=== PATIENT | female | born 1935 | race Caucasian/White ===

== ENCOUNTER 2020-10-24 08:15 | Observation (INO) | payer MEDICARE, OTHER ==
[~2020-10-24] VITALS: Ht 137.2 cm; Wt 55.0 kg
--- NOTE | 2020-10-24 08:15 | NUR ---
TO ROOM VIA EMS
--- NOTE | 2020-10-24 08:51 | NUR ---
MEDICATED WITH 2MG IVP FOR C/O 10/10 LEFT FOOT PAIN.
[2020-10-24] MEDS ORDERED: TRAMADOL HCL50 MG PO (09:04)
[2020-10-24] MEDS ORDERED: CLOPIDOGREL75 MG PO (09:07)
[2020-10-24] MEDS ORDERED: ATORVASTATIN CA80 MG PO (09:07)
[2020-10-24] MEDS ORDERED: FUROSEMIDE20 MG PO (09:08)
[2020-10-24] MEDS ORDERED: LOSARTAN POTASS50 MG PO (09:08)
[2020-10-24] MEDS ORDERED: EQ OMEPRAZOLE20 MG PO (09:09)
[2020-10-24] MEDS ORDERED: POT CHLORIDE10 ME5 PO (09:09)
[2020-10-24 09:25] LABS: URINE BILIRUBIN - DIPSTICK NEGATIVE (NEGATIVE); URINE BLOOD DIPSTICK TRACE-LYSED (NEGATIVE); URINE COLOR YELLOW; URINE GLUCOSE - DIPSTICK NEGATIVE (NEGATIVE); URINE KETONE NEGATIVE (NEGATIVE); URINE PH 6.5 (4.5-8.0); URINE PROTEIN - DIPSTICK NEGATIVE (NEG-TRACE); URINE UROBILINOGEN - DIPSTICK 0.2 E.U./dL (0.2)
[2020-10-24 09:26] LABS: URINE LEUK ESTERASE SMALL (NEGATIVE); URINE NITRITE - DIPSTICK NEGATIVE (Negative)
[2020-10-24 09:26] LABS: HEMATOCRIT 34.1 % (37.0-47.0); HEMOGLOBIN 10.7 g/dl (12.0-16.0); IMMATURE GRANULOCYTES 0.2 % (0.0-5.0); MEAN CELL VOLUME 87.4 fL CALC (80.0-100.0); MEAN CORPUSCULAR HGB 27.4 pG CALC (26.0-32.0); MEAN CORPUSCULAR HGB CONC 31.4 g/dL CAL (32.0-36.0); NEUT# 7.79 thou/uL (2.00-7.15); RED BLOOD COUNT 3.9 mill/uL (4.20-5.60); RED CELL DISTRI WIDTH 15.2 % (11.5-15.5)
[2020-10-24 09:32] LABS: URINE RBC 0-2 RBC/hpf (0-5); URINE SQUAMOUS EPITHELIAL CELL MANY EPI/hpf (0-FEW)
[2020-10-24 09:38] LABS: ALKALINE PHOSPHATASE 95 u/l (38-126); ANION GAP 15 (6-22 (CALC)); BILIRUBIN, TOTAL 0.7 mg/dL (0.0-1.4); BUN 12 mg/dL (8-23); BUN/CREATININE RATIO 14 (12-20 (CALC)); CARBON DIOXIDE 23 mmol/l (22-30); CHLORIDE 95 mmol/l (95-108); CREATININE 0.8 mg/dL (0.5-1.0); GFR > 60 ML/MIN (>=60 (CALC)); GFR FOR AFR.AMER. > 60 ML/MIN (>=60 (CALC)); POTASSIUM 3.8 mmol/l (3.5-5.1); SGOT/AST 23 u/l (9-36); SODIUM 129 mmol/l (137-146); TOTAL PROTEIN 7.3 g/dL (6.3-8.2)
[2020-10-24 09:41] LABS: ACT PARTIAL THROMBO TIME 25.1 SECONDS (20.0-32.5); INTERNATIONAL NORMALIZED RATIO 0.9 RATIO (0.7-1.3); PROTHROMBIN TIME 9.9 SECONDS (9.0-12.5)
--- NOTE | 2020-10-24 10:00 | NUR ---
RECEIVED REPORT ON PATIENT AND ASSUMED CARE. PATIENT IS RESTING IN BED WITH DAUGHTER AT BEDISDE. STATES HER LEFT FOOT HURTS. LEFT FOOT IS REDDENED, WARM AND TENDER. PULSES PALPABLE AND CAP REFILL LESS THAN 2 SECONDS. LEFT FOOT ELEVATED AND PILLOW PROVIDED FOR HEAD. LIGHTS DIMMED AND BLANKET PROVIDED FOR COMFORT STATED BY PATIENT. PLAN REVIEWED, AWAITING RESULTS. PATIENT AND DAUGHTER [id number] UNDERSTANDING. CALL LIGHT IN REACH.
--- NOTE | 2020-10-24 10:55 | NUR ---
MD AT BEDSIDE TO DISCUSS RESULTS AND POC.
--- NOTE | 2020-10-24 11:51 | NUR ---
PATIENT DIET CHANGED TO MECHANICAL SOFT, PATIENT STATES SHE HAS A HARD TIME CHEWING.
--- NOTE | 2020-10-24 11:51 | NUR ---
RECEIVED ROOM 272
--- NOTE | 2020-10-24 11:58 | NUR ---
REPORT RECEIVED FROM DAGO RIVERA
--- NOTE | 2020-10-24 12:00 | NUR ---
REPORT CALLED TO LAKISHA
[2020-10-24 12:12] VITALS: BP 142/65
--- NOTE | 2020-10-24 12:12 | NUR ---
PT ARRIVED TO MED/SURG ROOM 272 IN STABLE CONDITION VIA STERTCHER ACCOMPANIED BY DAGO RIVERA;PT ASSISTED TO BEDSIDE WITH X2 ASSIST;PT A&O X3 BUT NOTED TO BE CHICKEN RANCH, ROOM AND CALL LIGHT SYSTEM EDUCATED;WT AND VS OBTAINED;PT REPORTS LLE PAIN RATING 7/10 ON THE PAIN SCALE, RECENTLY MEDICATED WITH PRN ULTRAM 50MG PO IN ER;PAIN SCALE AND REPORTING EDUCATED;ASSESSMENT COMPLETED;RESPIRATIONS EVEN AND UNLABORED ON RA,CLEAR LUNG SOUNDS;ABDOMEN SOFT ON PALPATION AND ACTIVE IN ALL 4 QUADRANTS,LAST BM 10/23/20;REDDENING NOTED TO ABDOMINAL FOLDS;WEAK PEDAL PULSES;LLE RED/WARM TO TOUCH WITH +2 EDEMA,ELEVATION ON A PILLOW;TELE MONITORING IN PLACE;#22G TO RH FLUSHED AND PATENT, NS STARTED @ 100ML/HR,SITE APPEARS HEALTHY;FALL AND ALLERGY BAND APPLIED TO RIGHT WRIST;PT DENIES ANY ADDITIONAL NEEDS AND IS ENCOURAGED TO CALL FOR ASSISTANCE IF NEEDED;FALL PRECAUTIONS IN PLACE WITH BED IN THE LOWEST POSITION AND BED ALARM ON FOR SAFETY;CALL LIGHT IN REACH;WILL CONTINUE TO MONITOR
--- NOTE | 2020-10-24 14:16 | NUR ---
PT APPEARS TO BE SLEEPING IN SEMI FOWLERS POSITION;RESPIRATIONS EVEN AND UNLABORED ON RA;NO S/S OF DISTRESS NOTED;TELE MONITORING IN PLACE;IV SITE PATENT;ALL SAFETY PRECAUTIONS REMAIN IN PLACE WITH CALL LIGHT IN REACH;WILL CONTINUE TO MONITOR
[2020-10-24 15:02] VITALS: BP 129/68
--- NOTE | 2020-10-24 15:25 | NUR ---
PT RESTING IN SEMI FOWLERS POSITION;RESPIRATIONS EVEN AND UNLABORED ON RA;PT REPORTS PAIN TO LLE WHEN PALPATED OR MOVED, LLE REMAINS ELEVATED ON A PILLOW;PT CLEANED DUE TO INCONTINENCE AND PUREWICK CATHETER APPLIED;#22G TO RH REMAINS PATENT AND ABX STARTED PER ORDER;TELE MONITORING IN PLACE;PT DENIES ANY ADDITIONAL NEEDS AND IS ENCOURAGED TO CALL FOR ASSISTANCE IF NEEDED;FALL PRECAUTIONS REMAIN IN PLACE WITH BED ALARM ON FOR SAFETY;WILL CONTINUE TO MONITOR
--- NOTE | 2020-10-24 16:20 | NUR ---
PT CRYING IN PAIN AND REPORTING LLE IS THROBBING. CALL PLACED TO AND NEW ORDERS RECEIVED
--- NOTE | 2020-10-24 16:49 | NUR ---
PT REPORTS LLE PAIN RATING 8/10 ON THE PAIN SCALE, PT MEDICATED WITH PRN LORTAB 5/325MG PO AT THIS TIME;WILL CONTINUE TO MONITOR FOR EFFECTIVENESS
--- NOTE | 2020-10-24 20:00 | NUR ---
PT SITTING UP IN BED UPON ARRIVAL TO SHIFT, REPORT RECEIVED FROM DAY SHIFT NURSE. PT HAS DINNER TRAY SET UP IN FRONT OF HER, HAS NOT EATEN MUCH. PT C/O HEARTBURN, PROVIDED PT WITH A CARTON OF MILK TO HELP WITH HEARTBURN. IV REMAINS IN PLACE, NO SIGNS OF INFILTRATION/INFECTION NOTED. BREATHING IS EVEN AND UNLABORED. ASSESSMENTS COMPLETED, PLEASE SEE DOICUMENTATION. SAFETY PRECAUTIONS IN PLACE, BED IN LOW POSITION, CALL LIGHT WITHIN REACH. WILL MONITOR
[2020-10-24 20:08] VITALS: BP 116/62
[2020-10-25 00:06] VITALS: BP 99/58
--- NOTE | 2020-10-25 01:31 | NUR ---
PT RESTING IN BED WITH HER EYES CLOSED. NO S/S OF DISTRESS NOTED. NO COMPLAINTS VOICED. SAFETY PRECAUTIONS IN PLACE, WILL MONITOR
--- NOTE | 2020-10-25 02:54 | NUR ---
AFTER ABT HAD BEEN STARTED VIA IV RECEIVED A CALL FROM PT THAT IV SITE WAS HORRIBLY PAINFUL. ASSESSED SITE, NOTED REDNESS, PAIN, AND SWELLING TO SITE. ABT STOPPED PENDING NEW SITE. NEW SITE TO LAC #24 RUNNING NS @ 100ML/HR. X2 UNSICCESSFUL ATTEMPTS. PT TOLERATED WELL. SAFETY PRECAUTIONS IN PLACE. WILL MONITOR
[2020-10-25 05:05] LABS: HEMATOCRIT 34.1 % (37.0-47.0); HEMOGLOBIN 10.6 g/dl (12.0-16.0); MEAN CELL VOLUME 88.3 fL CALC (80.0-100.0); MEAN CORPUSCULAR HGB 27.5 pG CALC (26.0-32.0); MEAN CORPUSCULAR HGB CONC 31.1 g/dL CAL (32.0-36.0); RED BLOOD COUNT 3.86 mill/uL (4.20-5.60)
[2020-10-25 05:08] VITALS: BP 117/64
[2020-10-25 05:16] LABS: ANION GAP 15 (6-22 (CALC)); BUN 11 mg/dL (8-23); BUN/CREATININE RATIO 17 (12-20 (CALC)); CARBON DIOXIDE 21 mmol/l (22-30); CHLORIDE 98 mmol/l (95-108); CREATININE 0.7 mg/dL (0.5-1.0); GFR > 60 ML/MIN (>=60 (CALC)); GFR FOR AFR.AMER. > 60 ML/MIN (>=60 (CALC)); POTASSIUM 3.7 mmol/l (3.5-5.1); SODIUM 131 mmol/l (137-146)
--- NOTE | 2020-10-25 05:29 | NUR ---
PT RESTING WELL IN BED WITH EYES CLOSED. NO COMPLAINTS VOICED. NO S/S OF DISTRESS NOTED. SAFETY PRECAUTIONS REMAIN IN PLACE. WILL MONITOR
--- NOTE | 2020-10-25 07:00 | NUR ---
RECIEVED REPORT FROM ALEENA AKINS
[2020-10-25 07:43] VITALS: BP 122/63
--- NOTE | 2020-10-25 07:43 | NUR ---
PT SITTING UP IN BED EATING BREAKFAST. PT IS A/O X3. ASSESSMENT AND VITALS COMPLETED. BP 122/63, HR 84, O2 97% ON ROOM AIR.RESPIRATIONS ARE EVEN AND UNLABORED WITH NO DISTRESS NOTED. LUNG SOUNDS ARE CLEAR. HEART RHYTHM NORMAL WITH TELE IN PLACE. BOWEL SOUNDS ARE ACTIVE. RADIAL AND PEDAL PULSES STRONG. #24G LAC INFILTRATED, CATHATER INTACT UPON REMOVAL. NEW SITE TO BE STARTED. 2+ EDEMA AND REDNESS NOTED TO LLE. ELEVATED ON PILLOW X1. PURE WHICK IN PLACE. PT COMPLAINS OF 3/10 PAIN. PT TO BE MEDICATED PER EMAR. PT DENIES OF ANY ADDITIONAL NEEDS AT THIS TIME. ALL SAFETY PRECAUTIONS ARE IN PLACE WITH CALL LIGHT IN REACH. WILL CONTINUE TO MONITOR.
--- NOTE | 2020-10-25 08:38 | NUR ---
DR TENA AT BEDSIDE
--- NOTE | 2020-10-25 09:15 | NUR ---
MD AWARE OF NO IV SITE. GAMBLING DEALER INFORMED THAT ABX WOULD TO BE CHANGED TO PO AND NEW IV SITE WOUND NOT BE NEEDED.
--- NOTE | 2020-10-25 09:51 | NUR ---
PT WAS SAYIMG SHE WAS HAVING RIGHT KNEE PAIN, TOLD THE NURSE AND GAVE HER AN ICEPACK.
[2020-10-25 10:31] VITALS: BP 115/76
--- NOTE | 2020-10-25 10:37 | NUR ---
SPOKE WITH DAUGHTER YURI. PASSCODE PROVIDED.
--- NOTE | 2020-10-25 11:33 | NUR ---
PT SLEEPING IN SEMI FOWLERS POSITION. AWAKENS TO SPEECH. PT STATES PAIN IN 2/10. RESPIRATIONS ARE EVEN AND UNLABORED WITH NO DISTRESS NOTED. TELE MONITORING REMAINS IN PLACE. PUREWHCIK IN PLACE. PT DENIES OF ANY NEEDS AT THIS TIME. ALL SAFETY PRECAUTIONS ARE IN PLACE WITH CALL LIGHT IN REACH. WILL CONTINUE TO MONITOR.
--- NOTE | 2020-10-25 14:15 | NUR ---
NEW #24G RFA STARTED, SITE APPEARS HEALTHY AND PATENT. IVF INFUSING PER ORDER, SITE REMAINS HEALTHY AND PATENT.
[2020-10-25 15:24] VITALS: BP 118/65
--- NOTE | 2020-10-25 15:46 | NUR ---
PT SLEEPING IN SEMI FOWLERS POSITION. RESPIRATIONS ARE EVEN AND UNLABORED WITH NO DSIRTESS NOTED. #24G RFA INFUSING WITH IVF PER ORDER, SITE REMAINS HEALTHY AND PATENT. TELE MONITORING IN PLACE. NO SIGNS OF ANY PAINS OR DISCOMFORTS. ALL SAFGETY PRECAUTIONS ARE IN PLACE WITH CALL LIGHT IN REACH. WILL CONTINUE TO MONITOR.
[2020-10-25 18:45] VITALS: BP 98/53
--- NOTE | 2020-10-25 19:21 | NUR ---
REPORT GIVEN BY JENNIFER. PATIENT ALERT AND ORIENTED IN BED WATCHING TV. RESP EVEN AND UNLABORED. REDNESS IN ABD FOLDS. EDEMA PRESENT LEFT FOOT. PATIENT STATES LEFT/RIGHT LEG ARE ACHING. IV INFUSING KVO FLUIDS. NSR ON TELE. PLAN OF CARE DISCUSSED. PATIENT INFROEMD TO CALL WITH ANY QUESTIONS OR CONCERNS.
--- NOTE | 2020-10-25 23:32 | NUR ---
PATIENT RESTING WITH EYES CLOSED. RESP EVEN AND UNLABORED. NO S/S OF DISTRESS NOTED. FALL AND SAFTEY PRECAUTIONS IN PLACE.
[2020-10-26 00:01] VITALS: BP 117/65
--- NOTE | 2020-10-26 03:48 | NUR ---
PATIENT RESTING WITH EYES CLOSED. RESP EVEN AND UNLABORED. NO S/S DISTRESS NOTED. FALL AND SAFTEY PRECAUTIONS IN ORDER.
[2020-10-26 04:00] VITALS: BP 113/76
[2020-10-26 04:56] LABS: HEMATOCRIT 32.7 % (37.0-47.0); HEMOGLOBIN 10.2 g/dl (12.0-16.0); MEAN CELL VOLUME 87.4 fL CALC (80.0-100.0); MEAN CORPUSCULAR HGB 27.3 pG CALC (26.0-32.0); MEAN CORPUSCULAR HGB CONC 31.2 g/dL CAL (32.0-36.0); RED BLOOD COUNT 3.74 mill/uL (4.20-5.60); RED CELL DISTRI WIDTH 14.9 % (11.5-15.5)
[2020-10-26 05:11] LABS: ANION GAP 13 (6-22 (CALC)); BUN 8 mg/dL (8-23); BUN/CREATININE RATIO 13 (12-20 (CALC)); CARBON DIOXIDE 23 mmol/l (22-30); CHLORIDE 96 mmol/l (95-108); CREATININE 0.6 mg/dL (0.5-1.0); GFR > 60 ML/MIN (>=60 (CALC)); GFR FOR AFR.AMER. > 60 ML/MIN (>=60 (CALC)); MAGNESIUM 1.4 mg/dL (1.6-2.3); POTASSIUM 3.7 mmol/l (3.5-5.1); SODIUM 128 mmol/l (137-146)
[2020-10-26 07:33] VITALS: BP 133/68
--- NOTE | 2020-10-26 10:18 | NUR ---
PT AT REST IN THE BED, NO DISTRESS NOTED. LEFT FOOT SEEN WITHOUT REDNESS, ALTHOUGH THERE IS SOME TENDERNESS AND SWELLING. PT SEEN BY DR TENA, ENCOURAGED TO BE OOB IN CHAIR.
[2020-10-26 11:09] VITALS: BP 126/63
[2020-10-26] MEDS ORDERED: DOXYCYCL HYC100 MG PO (13:43)
[2020-10-26] MEDS ORDERED: TRAMADOL HCL50 MG PO (13:44)
--- NOTE | 2020-10-26 13:58 | NUR ---
PT note Patient with much less left foot and ankle pain. She tolerated ROM of the left ankle. The right ankle remains painful. She did transfer supine to sit and SPT with max assist of 1 to bedside chair. Once in her bedside chair, she is confortable and has pain only with transitional movement and ROM. She is imporving although Am Pac score remains unchanged. She would benefit from continued therapy for pain control, ROM and transfer training to maximize her functional status and help her regain some independence
--- NOTE | 2020-10-26 14:03 | NUR ---
PT TO BE DISCHARGED TODAY TO REHAB, DAUGHTER AT BEDSIDE. PT WITH MOANING UPON ATTEMPTS TO MOVE.
[2020-10-26 15:31] VITALS: BP 143/77
--- NOTE | 2020-10-26 16:14 | NUR ---
PT LEAVES DMH AT THIS TIME BY WHEELCHAIR ACCOMPANIED BY PERSONNEL FROM R. PT VERBALIZES UNDERSTANDING OF DC INSTRUCTIONS, LEAVES IN STABLE CONDITION. PT HAS BELONGING BAG WITH SLIPPERS, TABLET AND ITS REVENUE ANALYST.
== END 2020-10-26 16:10 ==
LOC: ED 08:15 → ED-I 10:50 → ED 11:03 → MS2 11:04
PROVIDERS: Nurse Practitioner; ADMIT Internal Medicine; ATTEND Internal Medicine
DX: L03.116 Cellulitis of left lower limb (principal); E87.1 Hypo-osmolality and hyponatremia; I10 Essential (primary) hypertension; I73.9 Peripheral vascular disease, unspecified; E78.5 Hyperlipidemia, unspecified; K21.9 Gastro-esophageal reflux disease without esophagitis; D64.9 Anemia, unspecified; K14.9 Disease of tongue, unspecified; Z79.02 Long term (current) use of antithrombotics/antiplatelets; Z86.73 Personal history of transient ischemic attack (TIA), and cerebral infarction without residual deficits; Z91.81 History of falling; Z20.822 Contact with and (suspected) exposure to COVID-19; Z98.890 Other specified postprocedural states
CPT/HCPCS: G0378; J3475

== ENCOUNTER 2021-01-12 12:51 | Emergency (ER) | payer MEDICARE, OTHER ==
[~2021-01-12] VITALS: Ht 137.2 cm; Wt 56.0 kg
[~2021-01-12 12:51] MED LIST: ATORVASTATIN CA80 MG PO; CLOPIDOGREL75 MG PO; DOXYCYCL HYC100 MG PO; EQ OMEPRAZOLE20 MG PO; FUROSEMIDE20 MG PO; LOSARTAN POTASS50 MG PO; POT CHLORIDE10 ME5 PO; TRAMADOL HCL50 MG PO
[2021-01-12 15:13] LABS: IMMATURE GRANULOCYTES 0.3 % (0.0-5.0); MEAN CELL VOLUME 87.2 fL CALC (80.0-100.0); MEAN CORPUSCULAR HGB 27.2 pG CALC (26.0-32.0); MEAN CORPUSCULAR HGB CONC 31.2 g/dL CAL (32.0-36.0); NEUT# 5.94 thou/uL (2.00-7.15); RED BLOOD COUNT 2.98 mill/uL (4.20-5.60); RED CELL DISTRI WIDTH 15.6 % (11.5-15.5)
[2021-01-12 15:16] LABS: HEMOGLOBIN 8.1 g/dl (12.0-16.0)
[2021-01-12 15:24] LABS: ALBUMIN 3.6 g/dL (3.2-5.0); ALKALINE PHOSPHATASE 114 u/l (38-126); ANION GAP 9 (6-22 (CALC)); BILIRUBIN, TOTAL 0.5 mg/dL (0.0-1.4); BUN 16 mg/dL (8-23); BUN/CREATININE RATIO 26 (12-20 (CALC)); CARBON DIOXIDE 26 mmol/l (22-30); CHLORIDE 99 mmol/l (95-108); CREATININE 0.6 mg/dL (0.5-1.0); GFR > 60 ML/MIN (>=60 (CALC)); GFR FOR AFR.AMER. > 60 ML/MIN (>=60 (CALC)); POTASSIUM 3.8 mmol/l (3.5-5.1); SGOT/AST 28 u/l (9-36); SODIUM 130 mmol/l (137-146); TOTAL PROTEIN 6.7 g/dL (6.3-8.2)
[2021-01-12 23:37] VITALS: BP 151/67
== END 2021-01-12 23:40 | disposition short-term general hospital (02) ==
LOC: ED 12:51 → ED-I 17:44 → ED 23:40
PROVIDERS: Emergency Medicine
DX: L02.11 Cutaneous abscess of neck (principal); E78.5 Hyperlipidemia, unspecified; I10 Essential (primary) hypertension; K21.9 Gastro-esophageal reflux disease without esophagitis; Z91.81 History of falling; Z85.810 Personal history of malignant neoplasm of tongue; Z20.822 Contact with and (suspected) exposure to COVID-19
CPT/HCPCS: Q9967